=== PATIENT | male | born 2000 | race Caucasian/White ===

== ENCOUNTER 2022-01-23 13:45 | Emergency (ER) | payer OTHER ==
[~2022-01-23] VITALS: Ht 188 cm; Wt 90.9 kg
[2022-01-23 14:04] VITALS: TEMP 98.4
[2022-01-23 14:15] VITALS: BP 127/76; PULSE 105
== END 2022-01-23 14:15 | disposition home or self-care (01) ==
LOC: COL.ER 13:45
DX: Z48.02 Encounter for removal of sutures (principal)